=== PATIENT | female | born 1995 ===

== ENCOUNTER 2019-10-25 13:38 | Emergency (ER) | payer SELFPAY ==
[~2019-10-25] VITALS: Ht 157.5 cm; Wt 59.0 kg
[2019-10-25 14:18] LABS: BASOPHILS ABSOLUTE AUTO 0.01 K/mm3 (0.00-0.23); BASOPHILS PERCENT AUTO 0 % (0-2); EOSINOPHILS PERCENT AUTO 0 % (0-6); Hematocrit 49.2 % (33.0-51.0); Hemoglobin 16.4 g/dL (11.5-16.0); IMMATURE GRAN ABSOLUTE AUTO 0.02 K/mm3 (0.00-0.10); IMMATURE GRAN PERCENT AUTO 0 % (0-1); LYMPHOCYTES ABSOLUTE AUTO 2.23 K/mm3 (0.84-5.20); LYMPHOCYTES PERCENT AUTO 36 % (21-46); MONOCYTES ABSOLUTE AUTO 0.17 K/mm3 (0.16-1.47); MONOCYTES PERCENT AUTO 3 % (4-13); Mean Corpuscular HGB Conc 33.3 g/dL (31.5-36.5); Mean Corpuscular Volume 84 fL (80-100); Mean Platelet Volume 10.4 fL (9.1-12.4); NEUTROPHILS ABSOLUTE AUTO 3.85 K/mm3 (1.96-9.15); NEUTROPHILS PERCENT AUTO 61 % (41-73); Platelet Count 295 K/mm3 (150-400); RDW Coefficient Variation 12.1 % (11.7-14.2); RDW Standard Deviation 36.8 fL (35.1-46.3); Red Blood Cell Count 5.85 M/mm3 (3.80-5.20); White Blood Cell Count 6.28 K/mm3 (4.00-11.30)
[2019-10-25 14:38] LABS: Alanine Aminotransfer (ALT/SGP 52 U/L (12-78); Albumin, Blood 4.4 g/dL (3.4-5.0); Albumin/Globulin Ratio 0.8 (0.8-1.8); Alk Phos 121 U/L (50-136); Anion Gap 11 mmol/L (6-16); Aspartate Aminotrans (AST/SGOT 37 U/L (12-37); Bilirubin, Total 0.2 mg/dL (0.1-1.0); Blood Urea Nitrogen 15 mg/dL (8-24); Bun/Creatinine Ratio 23.2 (12.0-20.0); CO2, Blood 22 mmol/L (21-32); Calcium, Blood 9.8 mg/dL (8.5-10.1); Chloride, Blood 105 mmol/L (98-108); Creatinine, Blood 0.65 mg/dL (0.40-1.00); Globulin, Blood 5.2 g/dL (2.2-4.0); Glomerular Filtration Rate >60 (60-); Glucose, Blood 112 mg/dL (70-99); Potassium, Blood 3.3 mmol/L (3.5-5.5); Sodium, Blood 138 mmol/L (136-145); Total Protein, Blood 9.6 g/dL (6.4-8.2)
[2019-10-25] MEDS ORDERED: ONDA4ODT MM (17:41)
[2019-10-25] MEDS ORDERED: Bentyl10 MG PO (17:41)
== END 2019-10-25 18:40 | disposition home or self-care (01) ==
LOC: ER 13:38
PROVIDERS: Physician Assistant
DX: K52.9 Noninfective gastroenteritis and colitis, unspecified (principal)
CPT/HCPCS: 71045; 80053; 83690; 84703; 85025; 93005; 93010; 96361; 96372-59; 96374; 96375; 99284-25; A9270; J0500; J2405; J2550; J7120

== ENCOUNTER → 2019-12-22 | Outpatient (CLI) | payer SELFPAY ==
[~2019-12-22] MED LIST: Bentyl10 MG PO; ONDA4ODT MM
== END ==
LOC: LAB UCHC 14:10 → LAB SHORT 14:10
PROVIDERS: Registered Nurse Community Health
DX: Z01.419 Encounter for gynecological examination (general) (routine) without abnormal findings (principal)
CPT/HCPCS: G0123

== ENCOUNTER → 2022-03-28 | Outpatient (CLI) | payer OTHER ==
[2022-03-31 03:11] LABS: CHLAMYDIA TRACHOMATIS, NAA Negative (Negative)
== END | disposition home or self-care (01) ==
LOC: LAB SHORT 16:00 → LAB 16:00
PROVIDERS: Registered Nurse Community Health
DX: Z34.01 Encounter for supervision of normal first pregnancy, first trimester (principal)
CPT/HCPCS: 87491; 87591

== ENCOUNTER → 2022-07-27 | Outpatient (CLI) | payer OTHER ==
[2022-07-27 19:22] LABS: Hematocrit 36.7 % (33.0-51.0); Hemoglobin 12.3 g/dL (11.5-16.0)
[2022-07-27 19:45] LABS: Thyroid Stimulating Hormone 1.16 uIU/mL (0.360-4.800)
[2022-07-29 08:09] LABS: HIV AB/P24 AG SCREEN Non Reactive (Non Reactive)
== END | disposition home or self-care (01) ==
LOC: LAB 16:15 → LAB SHORT 16:15
PROVIDERS: Registered Nurse Community Health
DX: Z34.01 Encounter for supervision of normal first pregnancy, first trimester (principal)
CPT/HCPCS: 82950; 84443; 85014; 85018; 87389

== ENCOUNTER → 2022-09-18 | Outpatient (CLI) | payer OTHER | LOC: LAB 11:03 → LAB SHORT 11:03 | DX: Z34.93 Encounter for supervision of normal pregnancy, unspecified, third trimester (principal); Z3A.00 Weeks of gestation of pregnancy not specified | CPT/HCPCS: 87081; 87150 ==

== ENCOUNTER 2022-09-21 19:06 | Inpatient (IN) | payer OTHER ==
[~2022-09-21] VITALS: Ht 157.5 cm; Wt 66.8 kg
[2022-09-21 19:22] VITALS: BP 117/72
[2022-09-21 20:13] LABS: BASOPHILS ABSOLUTE AUTO 0.02 K/mm3 (0.00-0.23); BASOPHILS PERCENT AUTO 0 % (0-2); EOSINOPHILS ABSOLUTE AUTO 0.05 K/mm3 (0.00-0.68); EOSINOPHILS PERCENT AUTO 1 % (0-6); Hemoglobin 13.6 g/dL (11.5-16.0); IMMATURE GRAN ABSOLUTE AUTO 0.04 K/mm3 (0.00-0.10); IMMATURE GRAN PERCENT AUTO 0 % (0-1); LYMPHOCYTES PERCENT AUTO 26 % (21-46); MONOCYTES ABSOLUTE AUTO 0.81 K/mm3 (0.16-1.47); MONOCYTES PERCENT AUTO 8 % (4-13); Mean Corpuscular HGB 29.4 pg (26.0-34.0); Mean Corpuscular HGB Conc 34.9 g/dL (31.5-36.5); Mean Corpuscular Volume 84 fL (80-100); Mean Platelet Volume 11.2 fL (9.1-12.4); NEUTROPHILS ABSOLUTE AUTO 7.02 K/mm3 (1.96-9.15); NEUTROPHILS PERCENT AUTO 65 % (41-73); Platelet Count 235 K/mm3 (150-400); RDW Coefficient Variation 13.2 % (11.7-14.2); RDW Standard Deviation 40.8 fL (35.1-46.3); Red Blood Cell Count 4.62 M/mm3 (3.80-5.20); White Blood Cell Count 10.74 K/mm3 (4.00-11.30)
[2022-09-21 20:48] VITALS: BP 109/56
[2022-09-21 22:50] VITALS: BP 102/58
[2022-09-22] VITALS (31 sets, daily range): BP systolic 86–117; BP diastolic 51–75
--- NOTE | 2022-09-22 14:15 | NUR ---
09/22/22 1415 Rambo[address]ина miles VIABLE FEMALE BORN 1358. CORD SEGMENT FOR GASES SENT W/M.PAMELA RT. CORD BLOOD GIVEN TO Chintan FRANCO RN. WT 2170 GM 4LB 13OZ; LENGTH 17.5 IN; HEAD 12 IN; CHEST 11 IN. APGARS 8/9
[2022-09-22 14:16] LABS: PCO2 Cord - Arterial 55.3 mmHg (40-50); PO2 Cord - Arterial 17.3 mmHg (16-20)
[2022-09-22 14:19] LABS: PCO2 Cord - Venous 45.4 mmHg (40-50); pH Umbilical Cord - Venous 7.35 (7.26-7.35)
--- NOTE | 2022-09-22 16:15 | NUR ---
RESUME PT CARE. PT SITTING UP EATING CRACKERS, SMILING AND TALKING WITH FAMILY. FAMILY MEMBER IN THE ROOM TRANSLATING VERY WELL FOR PT AND STAFF. PT REPORTS PAIN 02/21. NO COMPLAINTS AT THIS TIME.
[2022-09-23 03:33] VITALS: BP 106/55
[2022-09-23 06:03] LABS: BASOPHILS ABSOLUTE AUTO 0.03 K/mm3 (0.00-0.23); BASOPHILS PERCENT AUTO 0 % (0-2); EOSINOPHILS ABSOLUTE AUTO 0.03 K/mm3 (0.00-0.68); EOSINOPHILS PERCENT AUTO 0 % (0-6); Hematocrit 30.4 % (33.0-51.0); Hemoglobin 10.2 g/dL (11.5-16.0); IMMATURE GRAN ABSOLUTE AUTO 0.05 K/mm3 (0.00-0.10); IMMATURE GRAN PERCENT AUTO 0 % (0-1); LYMPHOCYTES ABSOLUTE AUTO 2.12 K/mm3 (0.84-5.20); LYMPHOCYTES PERCENT AUTO 19 % (21-46); MONOCYTES ABSOLUTE AUTO 0.62 K/mm3 (0.16-1.47); MONOCYTES PERCENT AUTO 5 % (4-13); Mean Corpuscular HGB Conc 33.6 g/dL (31.5-36.5); Mean Corpuscular Volume 86 fL (80-100); Mean Platelet Volume 10.7 fL (9.1-12.4); NEUTROPHILS ABSOLUTE AUTO 8.62 K/mm3 (1.96-9.15); NEUTROPHILS PERCENT AUTO 75 % (41-73); Platelet Count 174 K/mm3 (150-400); RDW Coefficient Variation 13.4 % (11.7-14.2); RDW Standard Deviation 42.2 fL (35.1-46.3); Red Blood Cell Count 3.52 M/mm3 (3.80-5.20); White Blood Cell Count 11.47 K/mm3 (4.00-11.30)
[2022-09-23 08:21] VITALS: BP 101/58
[2022-09-23 13:33] VITALS: BP 118/75
[2022-09-23 17:08] VITALS: BP 111/69
[2022-09-23 19:12] VITALS: BP 119/77
[2022-09-23 23:23] VITALS: BP 103/55
[2022-09-24 04:22] VITALS: BP 111/78
[2022-09-24 08:15] VITALS: BP 113/68
[2022-09-24] MEDS ORDERED: IBUP800 PO (12:53)
[2022-09-24] MEDS ORDERED: PRENATAL TABLE1 EAC2 PO (12:53)
[2022-09-24] MEDS ORDERED: Percocet 5-3251 EACH PO (12:53)
[2022-09-24 15:24] VITALS: BP 113/55
[2022-09-24 21:10] VITALS: BP 109/64
--- NOTE | 2022-09-27 08:59 | NUR ---
UPDATED DELIVERY DATE AND TIME PER EMR
== END 2022-09-24 21:15 | disposition home or self-care (01) | DRG 788 ==
LOC: OBS 19:06 → BC 19:19
PROVIDERS: Obstetrics & Gynecology; ADMIT Registered Nurse Community Health
PROC: 10D00Z1 Extraction of Products of Conception, Low, Open Approach (ICD-10-PCS; 2022-09-22)
PROC: 4A033R1 Measurement of Arterial Saturation, Peripheral, Percutaneous Approach (ICD-10-PCS; principal; 2022-09-22 17:45)
DX: O36.5930 Maternal care for other known or suspected poor fetal growth, third trimester, not applicable or unspecified (principal); O76 Abnormality in fetal heart rate and rhythm complicating labor and delivery; Z37.0 Single live birth; Z3A.37 37 weeks gestation of pregnancy; Z67.40 Type O blood, Rh positive
CPT/HCPCS: 36415; 82803; 85025; 86850; 86900; 86901; 86923; A9270; J0690; J1885; J2590; J2765; J3010; J7120